=== PATIENT | male | born 1965 | race Caucasian/White ===

== ENCOUNTER 2017-07-18 13:51 | Observation (INO) | payer OTHER ==
[2017-07-18] MEDS ORDERED: BABY ASPIRIN 81 MG CHEW PO ONE (13:59)
[2017-07-18] MEDS ORDERED: NITRO-BID 2% UD PACKETS TOP ONE (13:59)
[2017-07-18] MEDS ORDERED: Pepcid 20 MG VIAL IV ONE ×2 (13:59→14:10)
[2017-07-18] MEDS ORDERED: Sodium Chloride 0.9% 1000 ML 1,000 ML IV SCH (14:00)
--- NOTE | 2017-07-18 14:09 | ERPHSYRPT ---
- History of Present Illness Time Seen by Provider: 07/18/17 13:52 Historian: patient Patient Subjective Stated Complaint: pt here for chest pain substernal, nonradiating today,pt had recent stents 7 total in last week, [facility] Nursing Assessment: pt alert, resp easy,skin w/d pink, no edema noted, Physician History: CC: chest tightness Hx: [address] Adams/Kathryn. He has hx of DM and fibromyaglia. He had chest pain last week and had [place] X 2. He had 6 stents at [facility] per Dr Peralta last week on Sat. Saturday he had another stenting this week. Went home from [facility] yesterday. Today was watching TV at 1PM and he had chest tightness. Seemed some better when he sat up. Was home alone and scared so came to ER. Pain some better now. Not short of breath. No N/V. Took a baby asa and plavix this AM. He recently quit smoking. Aspirin Treatment Today: 81 mg x 2, provided by ED Allergies/Adverse Reactions: cephalexin monohydrate [From Keflex] Allergy (Verified 07/18/17 14:01) Difficulty Breathing cyclobenzaprine HCl [From Flexeril] Allergy (Verified 07/18/17 14:01) Difficulty Breathing moxifloxacin HCl [From Avelox] Allergy (Verified 07/18/17 14:01) Difficulty Breathing Shellfish *RETIRED-11/19/12 [Shellfish] Allergy (Verified 07/18/17 14:01) Hives Home Medications: Albuterol 2.5 mg/3 ml Neb [Proventil 2.5 mg/3 ml Neb] 1 neb IH QID PRN PRN 12/17/11 [History] Albuterol Sulfate Mdi [Proair Hfa MDI] 2 puff IH Q4-6HPRN PRN 12/17/11 [ History] Gabapentin 300 mg [Neurontin 300 mg] 300 mg PO BID 12/17/11 [History] Glimepiride 2 mg [Amaryl 2 MG] 2 mg PO DAILY 12/17/11 [History] Omeprazole 40 mg PO DAILY 12/17/11 [History] Orphenadrine Citrate 100 mg [Norflex 100 MG Tablet] 1 tab PO BID 12/17/11 [History] Acetaminophen 500 mg [Tylenol Extra Strength 500 mg] 500 mg PO Q6H PRN PRN 02/24/12 [History] Nitroglycerin 0.4 mg SL UD 02/25/12 [History] Oxycodone/APAP 5 mg/325 mg [Percocet Tablet 5/325Mg] Q4H PRN PRN 07/08/12 [ History] Hx Tetanus, Diphtheria Vaccination/Date Given: (2010) Hx Influenza Vaccination/Date Given: No Hx Pneumococcal Vaccination/Date Given: No Immunizations Up to Date: Yes - Review of Systems Constitutional: No Fever, No Chills Eyes: No Symptoms Ears, Nose, & Throat: No Symptoms Respiratory: No Cough, No Dyspnea Cardiac: Chest Pain, No Syncope Abdominal/Gastrointestinal: No Abdominal Pain, No Nausea, No Vomiting Skin: No Rash Neurological: No Headache All Other Systems: Reviewed and Negative - Past Medical History Pertinent Past Medical History: Yes Neurological History: No Pertinent History ENT History: No Pertinent History Cardiac History: Angina, Coronary Artery Disease, Hypertension Respiratory History: Asthma, Bronchitis, COPD, Sleep Apnea Endocrine Medical History: Diabetes Type II Musculoskeletal History: Degenerative Disk Disease, Fibromyalgia GI Medical History: Diverticulitis, Ulcer History: No Pertinent History Psycho-Social History: No Pertinent History Male Reproductive Disorders: No Pertinent History - Past Surgical History Past Surgical History: Yes (toe and ankle) Neuro Surgical History: No Pertinent History Cardiac: Cardiac Catheterization, Cardiac Stent Respiratory: No Pertinent History Gastrointestinal: No Pertinent History Genitourinary: No Pertinent History Musculoskeletal: Amputation Male Surgical History: No Pertinent History Other Surgical History: patient had his left big toe amputated and right knee scoped - Social History Smoking Status: Former smoker How long have you smoked: 20 years Exposure to second hand smoke: No Alcohol Use: Socially Drug Use: none Patient Lives Alone: No Significant Family History: no pertinent family hx - Nursing Vital Signs Nursing Vital Signs: Initial Vital Signs Temperature 97.2 F 07/18/17 13:54 Pulse Rate 58 L 07/18/17 13:54 Respiratory Rate 18 07/18/17 13:54 Blood Pressure 117/70 07/18/17 13:54 O2 Sat by Pulse Oximetry 97 07/18/17 13:54 Pain Scale Pain Intensity 0 - Physical Exam General Appearance: alert Eye Exam: PERRL/EOMI Ears, Nose, Throat Exam: normal ENT inspection, moist mucous membranes Neck Exam: normal inspection, non-tender, supple Respiratory Exam: normal breath sounds Cardiovascular Exam: regular rate/rhythm Gastrointestinal/Abdomen Exam: soft, No tenderness, No distention, No guarding Extremity Exam: pedal edema (trace), No calf tenderness Neurologic Exam: alert, oriented x 3, cooperative, cardiovascular surgical tech II-XII nml as tested, sensation nml, No motor deficits Skin Exam: warm, dry, No rash SpO2 Interpretation: normal SpO2: 97 Oxygen Delivery: Room Air - Course Nursing assessment & vital signs reviewed: Yes EKG Interpreted by Me: RATE (53), Sinus Dave, NORMAL AXIS, NORMAL INTERVALS ( QTc 395), Non-specific ST Changes - Radiology Exams cxr X-ray Interpretation: Teleradiologist Report, Negative Ordered Tests: Active Orders 24 hr Category Date Time Status Tube Sizer And Cutter Operator STAT Care 07/18/17 13:59 Active EKG-ER Only STAT Care 07/18/17 13:59 Active IV Insertion STAT Care 07/18/17 13:59 Active Pulse Oximetry (ED) STAT Care 07/18/17 13:59 Active CHEST 1 VIEW (PORTABLE) Stat Exams 07/18/17 13:59 Completed CBC W DIFF Stat Lab 07/18/17 14:00 Completed CMP Stat Lab 07/18/17 14:00 Completed TROPONIN Q3H Lab 07/18/17 14:00 Completed TROPONIN Q3H Lab 07/18/17 17:00 Ordered TROPONIN Q3H Lab 07/18/17 20:00 Ordered TROPONIN Q3H Lab 07/18/17 23:00 Ordered TROPONIN Q3H Lab 07/19/17 02:00 Ordered Medication Summary Generic Name Dose Route Start Last Admin Trade Name Freq PRN Reason Stop Dose Admin Sodium Chloride 1,000 mls @ 50 mls/hr 07/18/17 14:00 07/18/17 14:13 Sodium Chloride 0.9% 1000 Ml IV 08/17/17 13:59 50 mls/hr .Q20H CHRIS Administration Discontinued Medications Generic Name Dose Route Start Last Admin Trade Name Freq PRN Reason Stop Dose Admin Aspirin 162 mg 07/18/17 13:59 07/18/17 14:13 Baby Aspirin 81 Mg Chew PO 07/18/17 14:00 162 mg STAT ONE Administration Aspirin Confirm 07/18/17 14:10 Baby Aspirin 81 Mg Chew Administered 07/18/17 14:11 Dose 162 mg .ROUTE .STK-MED ONE Famotidine 20 mg 07/18/17 13:59 07/18/17 14:13 Pepcid 20 Mg Vial IV 07/18/17 14:00 20 mg STAT ONE Administration Famotidine Confirm 07/18/17 14:10 Pepcid 20 Mg Vial Administered 07/18/17 14:11 Dose 20 mg IV .STK-MED ONE Hydroxyzine HCl 25 mg 07/18/17 14:10 07/18/17 14:13 Atarax 25 Mg PO 07/18/17 14:11 25 mg STAT ONE Administration Hydroxyzine HCl Confirm 07/18/17 14:12 Atarax 25 Mg Administered 07/18/17 14:13 Dose 25 mg .ROUTE .STK-MED ONE Nitroglycerin 1 gm 07/18/17 13:59 07/18/17 14:13 Nitro-Bid 2% Ud Packets TOP 07/18/17 14:00 1 gm STAT ONE Administration Nitroglycerin Confirm 07/18/17 14:10 Nitro-Bid 2% Ud Packets Administered 07/18/17 14:11 Dose 1 gm .ROUTE .STK-MED ONE Lab/Rad Data: Laboratory Result Diagrams 07/18/17 14:00 07/18/17 14:00 Laboratory Results 07/18/17 07/18/17 07/18/17 Range/Units 14:00 14:00 14:00 WBC 10.6 H (4.0-10.5) K/mm3 RBC 4.63 (4.1-5.6) M/mm3 Hgb 13.6 (12.5-18.0) gm/dl Hct 41.6 L (42-50) % MCV 89.8 (78-100) fl MCH 29.4 (26-32) pg MCHC 32.7 (32-36) g/dl RDW 12.1 (11.5-14.0) % Plt Count 299 (150-450) K/mm3 MPV 9.6 H (6-9.5) fl Gran % 62.1 (36.0-66.0) % Lymphocytes % 26.8 (24.0-44.0) % Monocytes % 8.6 (0.0-12.0) % Eosinophils % 2.2 (0.00-5.0) % Basophils % 0.3 (0.0-0.4) % Basophils # 0.03 (0-0.4) Sodium 139 (136-145) mEq/L Potassium 4.0 (3.5-5.1) mEq/L Chloride 104 (98-107) mEq/L Carbon Dioxide 28.8 (21-32) mEq/L Anion Gap 10.4 (5-15) MEQ/L BUN 18 (9-20) mg/dL Creatinine 1.01 (0.55-1.30) mg/dl Estimated GFR > 60 ML/MIN Glucose 163 H (70-110) MG/DL Calcium 8.8 (8.5-10.1) mg/dL Total Bilirubin 0.40 (0.2-1.0) mg/dL AST 33 (15-37) U/L ALT 59 (12-78) U/L Alkaline Phosphatase 69 (46-116) U/L Troponin I 0.593 H* (0.000-0.056) ng/ml Serum Total Protein 7.1 (6.4-8.2) gm/dL Albumin 3.3 L (3.4-5.0) g/dL - Progress Progress Note: 07/18/17 15:34 Pain free after NTG paste. Called Dr Peralta. Troponin still elevated but he had STEMI in past week and has two angiograms. Dr Peralta advised he is likely stabe. Needs serial troponins and advised observation here. If troponin increased he can be transferred to [facility]. 07/18/17 15:[address] Irvin for tele observation. Counseled pt/family regarding: lab results, diagnosis, need for follow-up, rad results - Departure Time of Disposition: 15:52 Departure Disposition: Observation (Tele) Clinical Impression: Chest pain, rule out acute myocardial infarction, Diabetes Condition: Stable Critical Care Time: No
[2017-07-18] MEDS ORDERED: ATARAX 25 MG PO ONE (14:10)
[2017-07-18] MEDS ORDERED: BABY ASPIRIN 81 MG CHEW ONE (14:10)
[2017-07-18] MEDS ORDERED: NITRO-BID 2% UD PACKETS ONE (14:10)
[2017-07-18 14:12] LABS: BASOPHIL % 0.3 % (0.0-0.4); Eosinophil % 2.2 % (0.00-5.0); Granulocytes % 62.1 % (36.0-66.0); Lymphocytes % 26.8 % (24.0-44.0); Mean Cell Volume 89.8 fl (78-100); Mean Corpuscular Hemoglobin 29.4 pg (26-32); Mean Platelet Volume 9.6 fl (6-9.5); Monocytes % 8.6 % (0.0-12.0); Platelet Count 299 K/mm3 (150-450); Red Blood Count 4.63 M/mm3 (4.1-5.6); Red Cell Distribution Width 12.1 % (11.5-14.0); White Blood Count 10.6 K/mm3 (4.0-10.5)
[2017-07-18] MEDS ORDERED: ATARAX 25 MG ONE (14:12)
--- NOTE | 2017-07-18 14:31 | XRAY ---
Indication: Chest pain and tightness. Comparison: January 07, 2014. Portable chest again demonstrates normal heart and lungs. Bony thorax intact again with multilevel spinal degenerative endplate spurring. No new/acute findings.
[2017-07-18 14:39] LABS: ALBUMIN 3.3 g/dL (3.4-5.0); ALKALINE PHOSPHATASE 69 U/L (46-116); ANION GAP 10.4 MEQ/L (5-15); BLOOD UREA NITROGEN 18 mg/dL (9-20); CHLORIDE 104 mEq/L (98-107); Carbon Dioxide 28.8 mEq/L (21-32); Glucose 163 MG/DL (70-110); SGOT/AST 33 U/L (15-37); SGPT/ALT 59 U/L (12-78); SODIUM 139 mEq/L (136-145); Total Protein 7.1 gm/dL (6.4-8.2)
[2017-07-18] MEDS ORDERED: TYLENOL 325 MG PO PRN (16:43)
[2017-07-18] MEDS ORDERED: MILK OF MAGNESIA 30 ML PO PRN (16:43)
[2017-07-18] MEDS ORDERED: MAALOX ES 30 ML UNIT DOSE PO PRN (16:43)
[2017-07-18] MEDS ORDERED: Zofran 4 MG/2 ML VIAL IV PRN (16:43)
[2017-07-18] MEDS ORDERED: NovoLOG Insulin SQ PRN (16:43)
[2017-07-18] MEDS ORDERED: Senokot-S Tablet PO PRN (16:43)
[2017-07-18] MEDS ORDERED: Sodium Chloride 0.9% 500 ML 500 ML IV SCH (16:43)
[2017-07-18] MEDS ORDERED: Nitrostat 0.4 MG Tablet SL SCH (17:30)
[2017-07-18] MEDS: NovoLOG Insulin SQ SCH (17:46)
[2017-07-18] MEDS ORDERED: Pepcid 20 MG PO SCH (22:00)
[2017-07-18] MEDS ORDERED: Catapres 0.1 MG PO SCH (22:00)
[2017-07-18] MEDS ORDERED: Vasotec 10 MG PO SCH (22:00)
[2017-07-18] MEDS ORDERED: Lantus Insulin SQ SCH (22:00)
[2017-07-18] MEDS ORDERED: NON-FORMULARY ITEM (Insulin Lispro 14 UNIT) SQ SCH (22:00)
[2017-07-19] MEDS: NovoLOG Insulin SQ SCH (07:44)
[2017-07-19 07:51] VITALS: PULSE 65
[2017-07-19 07:52] VITALS: BP 121/78; O2SAT 98
[2017-07-19] MEDS ORDERED: Ecotrin 325 MG PO SCH (10:00)
[2017-07-19] MEDS ORDERED: ECOTRIN 81 MG PO SCH (10:00)
[2017-07-19] MEDS ORDERED: Nicoderm CQ 21 MG TOP SCH (10:00)
[2017-07-19] MEDS ORDERED: PLAVIX 75 MG Tablet PO SCH (10:00)
[2017-07-19] MEDS ORDERED: NON-FORMULARY ITEM (Aspirin [Aspirin] 81 MG) PO SCH (10:00)
[2017-07-19] MEDS ORDERED: Protonix 40MG Tablet PO SCH (10:00)
[2017-07-19] MEDS ORDERED: NON-FORMULARY ITEM (Omeprazole 20 Mg [Prilosec 20 Mg] 20 MG) PO SCH (10:00)
[2017-07-19] MEDS ORDERED: ZOCOR 20MG PO SCH (10:00)
[2017-07-19] MEDS ORDERED: NON-FORMULARY ITEM (Atorvastatin Calcium [Lipitor] 80 MG) PO SCH (10:00)
[2017-07-19] MEDS ORDERED: Toprol-Xl 25MG Tablets PO SCH (10:00)
== END 2017-07-19 09:30 | disposition home or self-care (01) ==
LOC: ED 13:51 → ICU 16:28
PROVIDERS: ADMIT Family Medicine; ATTEND Family Medicine
DX: R07.9 Chest pain, unspecified (principal); E11.9 Type 2 diabetes mellitus without complications
CPT/HCPCS: 36000; 36415; 71010; 80053; 80061; 82962; 83721; 84484; 85025; 93005; 93041; 93268; 96360; 96361; 96374; 99285; G0378; A9270-GY